=== PATIENT | male | born 1955 | race Caucasian/White ===

== ENCOUNTER → 2020-01-27 | Outpatient (CLI) | payer OTHER ==
[~2020-01-27] MED LIST: No Meds at this Time
[2020-01-27 11:53] LABS: BASOPHILS # (AUTO) 0.04 x10^3/uL (0-0.1); BASOPHILS % (AUTO) 1 % (0-1); EOSINOPHILS # (AUTO) 0.16 x10^3/uL (0-0.4); EOSINOPHILS % (AUTO) 3 % (1-7); LYMPHOCYTES # (AUTO) 1.77 x10^3/uL (1-3.4); LYMPHOCYTES % (AUTO) 36 % (22-44); MD NO; MEAN CORPUSCULAR HGB CONC 33.2 g/dL (33.2-36.2); MEAN CORPUSCULAR VOLUME 93.3 fL (81-97); MEAN PLATELET VOLUME 9.4 fL (7.4-10.4); MONOCYTES # (AUTO) 0.43 x10^3/uL (0.2-0.8); MONOCYTES % (AUTO) 9 % (2-9); NEUTROPHILS # (AUTO) 2.45 x10^3/uL (1.8-6.8); NEUTROPHILS % (AUTO) 51 % (42-75); PLATELET COUNT 226 x10^3/uL (130-400); RED BLOOD COUNT 4.92 x10^6/uL (4.38-5.82); RED CELL DISTRIBUTION WIDTH 14.7 % (9.4-14.8)
[2020-01-27 12:01] LABS: ANION GAP 6 mmol/L (5-15); CALCIUM 8.4 mg/dL (8.5-10.1); CHLORIDE 107 mmol/L (98-107); CREATININE 1.16 mg/dL (0.7-1.3)
[2020-01-27 12:02] LABS: INTERNATIONAL NORMALIZED RATIO 1.04 (0.93-1.1)
[2020-01-27 12:09] LABS: MICROSCOPIC AUTO
== END | disposition home or self-care (01) ==
LOC: STAR 10:44
PROVIDERS: ATTEND Urology
DX: Z01.818 Encounter for other preprocedural examination (principal); N20.1 Calculus of ureter
CPT/HCPCS: 36415; 80048; 81001; 85025; 85610; 85730; 87086; 93005

== ENCOUNTER 2020-02-05 10:34 | Outpatient (CLI) | payer OTHER ==
[2020-02-06] MEDS ORDERED: NITR100C56 PO (06:28)
== END 2020-02-05 23:59 | disposition home or self-care (01) ==
LOC: RAD 10:34
PROVIDERS: ATTEND Urology
DX: N20.1 Calculus of ureter (principal); M47.816 Spondylosis without myelopathy or radiculopathy, lumbar region
CPT/HCPCS: 74018

== ENCOUNTER 2020-02-06 05:40 | Day surgery (SDC) | payer OTHER ==
[~2020-02-06] VITALS: Ht 195.6 cm; Wt 152.2 kg
[2020-02-06 06:23] VITALS: BP 158/105
[2020-02-06] MEDS ORDERED: LACTATED RINGERS 1,000 ML IV SCH (06:26)
[2020-02-06] MEDS ORDERED: NITR100C56 PO (06:28)
[2020-02-06 06:44] VITALS: BP 151/99
[2020-02-06] MEDS ORDERED: FENTANYL PF 100 MCG/2ML ONE (06:44)
[2020-02-06] MEDS ORDERED: DEXAMETHASONE 4 MG/ML, 1ML ONE (06:45)
[2020-02-06] MEDS ORDERED: MIDAZOLAM 1 MG/ML, 2ML ONE (06:45)
[2020-02-06] MEDS ORDERED: PROPOFOL 10 MG/ML, 20ML ONE (06:45)
[2020-02-06] MEDS ORDERED: ONDANSETRON 2MG/ML, 2ML ONE (06:45)
[2020-02-06] MEDS ORDERED: OXYcodone 5 MG/5 ML ORAL.SOL UDC PO PRN (07:00)
[2020-02-06] MEDS ORDERED: MEPERIDINE/PF 25MG/ML,1ML IVPush PRN (07:00)
[2020-02-06] MEDS ORDERED: PROMETHAZINE 25 MG/ML, 1ML IV PRN (07:00)
[2020-02-06] MEDS ORDERED: FENTANYL PF 100 MCG/2ML IV PRN (07:00)
[2020-02-06] MEDS ORDERED: HYDROmorphone 2 MG/ML, 1ML IVPush PRN (07:00)
[2020-02-06] MEDS ORDERED: SUCCINYLCHOLINE 20 MG/ML, 10ML ONE (07:05)
[2020-02-06] MEDS ORDERED: EPHEDRINE 50 MG/ML, 1ML ONE (07:52)
[2020-02-06] MEDS ORDERED: CEFAZOLIN 1,000 MG ONE (07:52)
[2020-02-06] MEDS ORDERED: OMNIPAQUE 350 MG/ML, 50 ML BOTTLE ONE (08:45)
== END 2020-02-06 11:25 | disposition home or self-care (01) ==
LOC: OUT 05:40
PROVIDERS: ATTEND Urology
DX: N21.0 Calculus in bladder (principal); E66.01 Morbid (severe) obesity due to excess calories; Z68.37 Body mass index [BMI] 37.0-37.9, adult; Z79.891 Long term (current) use of opiate analgesic; Z79.899 Other long term (current) drug therapy
CPT/HCPCS: 52310; 74420; 82360; 88300; C1769; J0330; J0690; J1100; J2250; J2405; J2704; J3010; J7120; Q9967